=== PATIENT | female | born 1955 | race Caucasian/White ===

== ENCOUNTER → 2020-02-06 10:42 | Outpatient (CLI) | payer BC, SELFPAY ==
--- NOTE | 2020-02-06 10:52 | BD_ITS ---
STUDY: DUAL ENERGY X-RAY ABSORPTIOMETRY / DXA REASON FOR EXAM: Female, 64 years old. [employer] -- TAKES VITAMIN D -- DOES HIGH AMOUNT OF EXERCISE -- HX OF RIGHT LEG FX -- ROSALINA OF 0.75 INCH TECHNIQUE: Bone Mineral Density (BMD) measurements of lumbar spine and bilateral hips were obtained. COMPARISON: None. FINDINGS: Lumbar Spine (L1-L4): g/cm2 (0.942) / T-score (-2.0) / Z-score (-0.6) Findings are suggestive of osteopenia with a moderate fracture risk. Left Femur Total: g/cm2 (0.869) / T-score (-1.1) / Z-score (-0.1) Left Femoral Neck: g/cm2 (0.973) / T-score (-0.5) / Z-score (0.9) Right Femur Total: g/cm2 (0.891) / T-score (-0.9) / Z-score (0.1) Right Femoral Neck: g/cm2 (0.959) / T-score (-0.6) / Z-score (0.8) BD/Dexa Bone Density Study IMPRESSION: The patient is considered osteopenic as outlined below according to World [employer] Organization (WHO) criteria with a moderate fracture risk. Reference Information: The T-score is the number of standard deviations above or below the standard which is normal for young adults at their peak bone mineral density. The World Health Organization (WHO) interprets the T-scores as follows: Above -1 Normal bone density Between -1 and -2.5 Osteopenia Equal to / or below -2.5 Osteoporosis As a practical clinical guideline, osteopenia may be graded as follows: Mild -1 through -1.5 Moderate -1.6 through -2.0 Severe -2.1 through -2.4 The Z-score is the number of standard deviations above or below age-matched controls. A Z-score of less than -1.5 would be considered abnormal. References: 1. NIH Osteoporosis and Related Bone Diseases http://www.osteo.org 2. International Society for Clinical Densitometry http://www.iscd.org 3. National Osteoporosis Foundation http://www.nof.org Electronically Signed: Sohail Macario, at 15:06 EDT , Service support ,
== END ==
PROVIDERS: PCP Nurse Practitioner; Referring Provider Nurse Practitioner; Visit Provider Nurse Practitioner
DX: Z78.0 Asymptomatic menopausal state (principal)
CPT/HCPCS: 77080

== ENCOUNTER → 2020-02-19 09:10 | Outpatient (CLI) | payer BC, SELFPAY ==
--- NOTE | 2020-02-19 09:13 | RAD_ITS ---
HISTORY: right foot pain Technique: Right foot AP, lateral, and oblique radiographs Comparison: None available Findings: No acute fracture is perceived. The patient has a lateral fixation plate and screw width in the distal fibula across a healed fracture. Osseous mineralization, joint spaces, otherwise appear preserved as imaged. There is flexion deformity at the interphalangeal joints, and minimal extension at the metatarsophalangeal joints. No focal abnormality or radiopaque foreign body is seen in the surrounding soft tissues. RAD/Foot min 3 Views IMPRESSION: No acute osseous abnormality identified in the foot. at 0422 Reported and signed by: Rangel Ruano MD Electronically Signed: Rangel Ruano MD at 4:21 EDT Tel , Service support ,
== END ==
PROVIDERS: PCP Nurse Practitioner; Referring Provider Nurse Practitioner; Visit Provider Nurse Practitioner
DX: M79.673 Pain in unspecified foot (principal)
CPT/HCPCS: 73630

== ENCOUNTER → 2020-03-24 17:16 | Outpatient (CLI) | payer BC, SELFPAY ==
[2020-03-24 09:44] VITALS: BMI 22.8
[2020-03-28 06:17] LABS: HPV APTIMA, High Risk Negative (Negative)
== END ==
PROVIDERS: PCP Nurse Practitioner; Visit Provider Obstetrics & Gynecology
DX: Z12.4 Encounter for screening for malignant neoplasm of cervix (principal)
CPT/HCPCS: 87624; 88175; G0145

== ENCOUNTER → 2020-04-01 11:19 | Outpatient (CLI) | payer BC, SELFPAY ==
[2020-03-24 09:44] VITALS: BMI 22.8
--- NOTE | 2020-04-01 11:20 | US_ITS ---
STUDY: ULTRASOUND OF THE FEMALE PELVIS - COMPLETE REASON FOR EXAM: Female, 64 years old. adnexal mass, hx cysts per patient LMP: TECHNIQUE: Transabdominal and Transvaginal TECHNICAL QUALITY: Adequate. COMPARISON: None. FINDINGS: The uterus is anteverted and is in a midline position. The uterus measures 7.5 x 4.7 x 3.6 cm. There is a Nabothian cyst of the cervix. The endometrium measures 5 mm in thickness, and is hyperechoic. There is no demonstrated endometrial mass. There is a 3.9 cm pedunculated fibroid on the right side of the uterus. Additional 1.5 cm calcified fibroid. I.U.D. - The patient does not have an I.U.D. Neither ovary is visualized. There is no fluid in the cul-de-sac. The pre void volume of the bladder was 557 ml. US/Transvaginal Non- IMPRESSION: A pedunculated 3.9 cm fibroid of the right side of the uterus. Neither ovary is seen. Electronically Signed: Demar Olmedo MD at 21:06 EST , Service support ,
--- NOTE | 2020-04-01 11:20 | US_ITS ---
STUDY: ULTRASOUND OF THE FEMALE PELVIS - COMPLETE REASON FOR EXAM: Female, 64 years old. adnexal mass, hx cysts per patient LMP: TECHNIQUE: Transabdominal and Transvaginal TECHNICAL QUALITY: Adequate. COMPARISON: None. FINDINGS: The uterus is anteverted and is in a midline position. The uterus measures 7.5 x 4.7 x 3.6 cm. There is a Nabothian cyst of the cervix. The endometrium measures 5 mm in thickness, and is hyperechoic. There is no demonstrated endometrial mass. There is a 3.9 cm pedunculated fibroid on the right side of the uterus. Additional 1.5 cm calcified fibroid. I.U.D. - The patient does not have an I.U.D. Neither ovary is visualized. There is no fluid in the cul-de-sac. The pre void volume of the bladder was 557 ml. US/Pelvic (Non ) IMPRESSION: A pedunculated 3.9 cm fibroid of the right side of the uterus. Neither ovary is seen. Electronically Signed: Demar Olmedo MD at 21:06 EST , Service support ,
== END ==
PROVIDERS: PCP Nurse Practitioner; Referring Provider Obstetrics & Gynecology; Visit Provider Obstetrics & Gynecology
DX: N94.89 Other specified conditions associated with female genital organs and menstrual cycle (principal)
CPT/HCPCS: 76830; 76856

== ENCOUNTER → 2020-08-28 10:07 | Outpatient (CLI) | payer BC, SELFPAY ==
[2020-03-24 09:44] VITALS: BMI 22.8
--- NOTE | 2020-08-28 10:09 | VDLE_ITS ---
Reason For Study: [place] RIGHT LEFT GSV is normal. CFV is compressible, spontaneous, phasic, CFV is compressible, spontaneous, phasic, competent, and demonstrates normal competent and demonstrates normal augmentation. augmentation. FV is compressible, spontaneous, phasic, competent and demonstrates normal augmentation. POP V is compressible, spontaneous, phasic, competent and demonstrates normal augmentation. T/P Trunk is compressible. PTV is compressible. RT PerV is compressible. Procedure This is a venous duplex using B-mode, color flow and spectral Doppler. Exam performed in department. A preliminary report was called and/or faxed to Cinthya Mathis. VL/Venous Duplex US, Unilateral Interpretation Summary Deep veins of the right lower extremity are patent and compressible segmentally . There is no evidence of right lower extremity deep vein thrombosis. Valvular competence maria ears intact within the proximal deep venous system on the right . The right great saphenous vein a ppears patent and compressible segmentally. Ordering Physician: Cinthya Mathis Referring Physician: Cinthya Mathis Performed By: Sindhu Salgado, RDCS, RVT
== END ==
PROVIDERS: PCP Nurse Practitioner; Referring Provider Nurse Practitioner; Visit Provider Nurse Practitioner
DX: M79.604 Pain in right leg (principal)
CPT/HCPCS: 93971

== ENCOUNTER → 2020-09-30 12:22 | Outpatient (CLI) | payer BC, SELFPAY ==
[2020-03-24 09:44] VITALS: BMI 22.8
--- NOTE | 2020-09-30 12:24 | BI_ITS ---
MAMMOGRAPHY - BILATERAL SCREENING REASON FOR EXAM: Female, 64 years old. Routine annual screening examination. PERTINENT HISTORY: Non-contributory. TECHNIQUE: Digital bilateral breast dee (3D mammographic acquisition) in the CC and MLO projections. 2-D mediolateral oblique (MLO) and craniocaudad (CC) views of both breasts were obtained. CAD: Full Field Digital Mammography with Computer Added Detection was performed. COMPARISON: Comparison is made with prior outside examination dated 07/31/2019. FINDINGS: Breast Composition: There are scattered areas of fibroglandular density. There are no dominant masses or suspicious calcifications. No other significant abnormalities are identified. There has been no significant change since the prior study. BI/SCRN MAMM (CAD)W/DEE BILAT IMPRESSION: Stable bilateral screening mammogram. Yearly follow-up mammogram recommended. (A) ASSESSMENT CATEGORY: BIRADS Category 1: Negative. A letter regarding these results will be sent to the patient by the facility within 30 days. Approximately 10% of breast cancers are not detected by mammography. A normal mammogram should not delay biopsy of a clinically suspicious abnormality. [id number] Electronically Signed: Sohail Macario MD at 8:16 EDT , Service support ,
== END ==
PROVIDERS: PCP Nurse Practitioner; Referring Provider Nurse Practitioner; Visit Provider Nurse Practitioner
DX: Z12.31 Encounter for screening mammogram for malignant neoplasm of breast (principal)
CPT/HCPCS: 77063; 77067

== ENCOUNTER 2021-08-27 12:15 | Outpatient (CLI) | payer BC, SELFPAY ==
--- NOTE | 2021-08-27 12:18 | US_ITS ---
STUDY: ULTRASOUND OF THE FEMALE PELVIS - COMPLETE REASON FOR EXAM: Female, 65 years old. Pain LMP: Unknown. TECHNIQUE: Transabdominal and Transvaginal TECHNICAL QUALITY: Adequate. COMPARISON: None. FINDINGS: The uterus is anteverted and is in a midline position. The uterus measures 7.5 x 5.0 x 2.9 cm. Normal uterine cervix. The endometrium measures 2 mm in thickness, and is hyperechoic. There is no demonstrated endometrial mass. Female side of her nose 2 separate fibroids larger measures 4.7 cm. I.U.D. - The patient does not have an I.U.D. The right ovary is visualized. The right ovary measures 2.0 x 1.5 x 0.8 cm. There is no right ovarian cyst or ovarian mass. There is no visualized right adnexal mass or complex lesion. There is normal arterial and normal venous vascularity. The left ovary is visualized. The left ovary measures 1.7 x 1.6 x 1.2 cm. There is no left ovarian cyst or ovarian mass. There is no visualized left adnexal mass or complex lesion. There is normal arterial and normal venous vascularity. There is no fluid in the cul-de-sac. The bladder is sonographically US/Pelvic (Non ) IMPRESSION: Enlarged fibroid uterus, larger of the 2 fibroids measures 4.7 cm No suspicious adnexal mass or free fluid Sonographically normal endometrial thickness for age Electronically Signed: Chadd Atkins MD at 16:56 EDT ,
--- NOTE | 2021-08-27 12:18 | US_ITS ---
STUDY: ULTRASOUND OF THE FEMALE PELVIS - COMPLETE REASON FOR EXAM: Female, 65 years old. Pain LMP: Unknown. TECHNIQUE: Transabdominal and Transvaginal TECHNICAL QUALITY: Adequate. COMPARISON: None. FINDINGS: The uterus is anteverted and is in a midline position. The uterus measures 7.5 x 5.0 x 2.9 cm. Normal uterine cervix. The endometrium measures 2 mm in thickness, and is hyperechoic. There is no demonstrated endometrial mass. Female side of her nose 2 separate fibroids larger measures 4.7 cm. I.U.D. - The patient does not have an I.U.D. The right ovary is visualized. The right ovary measures 2.0 x 1.5 x 0.8 cm. There is no right ovarian cyst or ovarian mass. There is no visualized right adnexal mass or complex lesion. There is normal arterial and normal venous vascularity. The left ovary is visualized. The left ovary measures 1.7 x 1.6 x 1.2 cm. There is no left ovarian cyst or ovarian mass. There is no visualized left adnexal mass or complex lesion. There is normal arterial and normal venous vascularity. There is no fluid in the cul-de-sac. The bladder is sonographically US/Transvaginal Non- IMPRESSION: Enlarged fibroid uterus, larger of the 2 fibroids measures 4.7 cm No suspicious adnexal mass or free fluid Sonographically normal endometrial thickness for age Electronically Signed: Chadd Atkins MD at 16:56 EDT ,
== END 2021-08-27 23:59 | disposition home or self-care (01) ==
LOC: OPUS 12:16
PROVIDERS: PCP Nurse Practitioner; Visit Provider Nurse Practitioner Women's Health
DX: R10.2 Pelvic and perineal pain (principal)
CPT/HCPCS: 76830; 76856

== ENCOUNTER → 2021-10-01 | Outpatient (CLI) | payer BC, SELFPAY ==
--- NOTE | 2021-10-01 08:23 | BI_ITS ---
MAMMOGRAPHY - BILATERAL SCREENING REASON FOR EXAM: Female, 65 years old. Routine annual screening examination. PERTINENT HISTORY: Non-contributory. TECHNIQUE: Digital bilateral breast dee (3D mammographic acquisition) in the CC and MLO projections. 2-D mediolateral oblique (MLO) and craniocaudad (CC) views of both breasts were obtained. CAD: Full Field Digital Mammography with Computer Added Detection was performed. COMPARISON: Comparison is made with prior study dated 09/30/2020. FINDINGS: Breast Composition: There are scattered areas of fibroglandular density. There are no dominant masses or suspicious calcifications. No other significant abnormalities are identified. There has been no significant change since the prior study. BI/SCRN MAMM (CAD)W/DEE BILAT IMPRESSION: Stable bilateral screening mammogram. Yearly follow-up mammogram recommended. (A) ASSESSMENT CATEGORY: BIRADS Category 1: Negative. A letter regarding these results will be sent to the patient by the facility within 30 days. Approximately 10% of breast cancers are not detected by mammography. A normal mammogram should not delay biopsy of a clinically suspicious abnormality. [id number] Electronically Signed: Sohail Macario MD at 9:36 EDT ,
== END | disposition home or self-care (01) ==
LOC: OPBI 08:22
PROVIDERS: PCP Nurse Practitioner; Visit Provider Nurse Practitioner Women's Health
DX: Z12.31 Encounter for screening mammogram for malignant neoplasm of breast (principal)
CPT/HCPCS: 77063; 77067

== ENCOUNTER 2021-10-06 05:14 | Day surgery (SDC) | payer BC, SELFPAY ==
--- NOTE | 2021-10-01 08:46 | EKG12_ITS ---
Test Reason : PRE-OP Blood Pressure : / mmHG Vent. Rate : 060 BPM Atrial Rate : 060 BPM P-R Int : 126 ms QRS Dur : 096 ms QT Int : 432 ms P-R-T Axes : 067 046 051 degrees QTc Int : 432 ms Normal sinus rhythm Normal ECG Confirmed by ROSI URIBE, MARILUZ ([id number]), associate editor JAVI JASON ([id number]) on 10/02/2021 9:44:31 AM Referred By: GABE Confirmed By:JOSE ARMANDO ARANDA MD
[2021-10-01 09:41] LABS: Hematocrit 42.6 % (37-47); Hemoglobin 14.4 g/dL (12.0-15.0); Mean Corp Hgb Conc 33.8 g/dL (32-36); Mean Corpuscular Hgb 31.3 pg (27.0-32.0); Mean Corpuscular Volume 92.6 fL (81-99); Mean Platelet Vol. 9.9 fl (6.2-12.0); Platelet Count 183 K/mm3 (150-450); White Blood Count 2.8 K/mm3 (4.4-11.0)
[2021-10-01 10:05] LABS: Magnesium 2.1 mg/dL (1.6-2.6)
--- NOTE | 2021-10-04 07:54 | PCM.HP.BLA ---
History and Physical Date of Admission: 10/06/21 MR#:[id number]: JULIANA NORRIS #:[id number]:[id number] Provider:Dr. 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 Is patient in pain?: No Allergies No Known Allergies Allergy (Verified 09/16/21 13:23) Medications ascorbate calcium (vitamin C) 500 mg tablet 500 mg PO DAILY 03/24/20 [History Confirmed 09/16/21] biotin 1 mg capsule 1 mg PO DAILY 03/24/20 [History Confirmed 09/16/21] calcium carbonate 600 mg-vitamin D3 12.5 mcg (500 unit) capsule cap PO 03/24/20 [History Confirmed 09/16/21] cholecalciferol (vitamin D3) 50 mcg (2,000 unit) capsule 50 mcg PO DAILY 03/24/20 [History Confirmed 09/16/21] multivitamin 1 tab PO DAILY 03/24/20 [History Confirmed 09/16/21] cranberry 400 mg capsule 400 mg PO DAILY 02/05/21 [History Confirmed 09/16/21] lactobacillus combination no.4 3 billion cell capsule 3,000 mmu cells PO DAILY 02/05/21 [History Confirmed 09/16/21] Post menopausal: No Patient : No : No PFSH Medical History Abnormal Pap smear of cervix Right leg injury Surgical History H/O dilation and curettage s/p leg surgery Family History Mother Non-Hodgkin's lymphoma in adult Sister Hypertension Diabetes Father Kidney disease Social History Smoking Status: Never smoker alcohol intake: current details: occasionally substance use type: does not use caffeine: Yes what type of physical activity do you participate in: walking, running, aerobics and weight training frequency: 5-6 times per week seatbelt use: always do you feel safe at home: Yes additional social history: - Andrew Patient and both retired [employer] US follow up/possible surgical consult Details: JULIANA NORRIS is a 65 year old who presents for surgical consultation sent to me by Mitzi Sinclair CNP. The consultation is in regards to fibroid uterus that is causing worsening pelvic pain. The patient states that throughout her life her doctors have monitored a masslike structure in her uterus and have has been told that this is not a indication for surgery and has been monitored over several years and several different doctors. In the past however the fibroids were not causing her significant pain or abnormal bleeding. However she is now experiencing abdominal discomfort on the left and right sides of her pelvis more on her left side ultrasound shows a 7 cm uterus with 2 large fibroids at the fundus measuring approximately 5 cm each she is no longer interested in watching the fibroids and monitoring them over time she is recommending surgical excision of the entire uterus ovaries and fibroids. She is not experiencing any post menopausal bleeding and her endometrial lining is 2 mm in thickness. Her last Pap smear was in 2020 and was normal. She does have a history of abnormal Pap smears in the long past. Pregancy History 4 Elective abortions Hx Para 3 Spontaneous abortions 1 Hx # Term Pregnancies Ectopic pregnancies Hx # Pregnancies Multiple births # of living children Past Pregnancies Del. Date Name GA/Weeks Outcome Route Bth Weight Gen Labor Lgth Anesthesia Del Locatn Provider FOB Unknown Joshua Unknown Jeremias Unknown Will ROS Const ROS Unobtainable: All systems reviewed & are unremarkable except as noted in H Resp Resp: Reports system reviewed and no additional complaints, except as documented; Denies cough GI GI: Reports as per HPI Psych Psych: Reports system reviewed and no additional complaints, except as documented Exam Const General: cooperative, healthy appearing, comfortable and no acute distress Resp Effort & Inspection: normal respiratory effort Skin General: no rashes or lesions noted Psych Appearance: grossly normal Speech and Movement: speech and movement normal Coding Level of Care Code Off vis,est,level 4 Diagnoses Pelvic pain R10.2 Fibroid uterus D25.9 Assessment and Plan Assessment and Plan (1) Pelvic pain: Status: Acute Comment: US (2) Fibroid uterus: Status: Acute Plan - Dr. Susan Reed DO: After discussing the patient's diagnosis and treatment plan options, patient wishes to proceed with surgical management. I have discussed with the patient the risks, benefits, and alternatives of the procedure which include but are not limited to risks of anesthesia, bleeding, infection, possible damage to bowel, bladder, or surrounding vasculature which could lead to additional surgery to evaluate any complications. Patient agrees to procedure and wishes to proceed. ACOG/uptodate references given for additional information regarding procedure After long discussion on the risks benefits and alternatives to surgery the decision was made to proceed with a total robotic hysterectomy bilateral salpingo-oophorectomy and cystoscopy. UPDATE- I have seen the patient and performed any clinically relevant updates to the history and physical exam. Susan Reed DO
[2021-10-06] VITALS (8 sets, daily range): BP systolic 107–137; BP diastolic 69–97; PULSE 55–73; RESP 16; TEMP 36.1–36.6; O2SAT 94–100
[2021-10-06] MEDS: Lactated Ringers 1,000 ML 40 ML IV (06:29)
[2021-10-06] MEDS: Gabapentin 600 MG Tablet PO (06:30)
[2021-10-06] MEDS: Acetaminophen 500 MG Tablet 1000 MG PO (06:30)
[2021-10-06] MEDS: Celecoxib 200 MG Capsule 400 MG PO (06:30)
[2021-10-06 06:35] LABS: Bedside Glucose 81 mg/dL (74-106)
[2021-10-06] MEDS: dexAMETHasone 10 MG/ML Vial 8 MG IV (06:35)
--- NOTE | 2021-10-06 07:30 | HYST_PTH ---
PATIENT: [place]ULIANA NORRIS [place] [facility] [id number] AGE/SX: 65/F ROOM: RE10/06/[address]: Dr. Susan Reed DO : 1955 BED: DIS: 10/06/2021 SPEC #: [id number] RECD: 10/06/21 10:49 STATUS: MIHAELA DOUGLAS #: [id number] LOU: 10/06/21 07:[address]: Susan Reed DEPT: SURGICAL PATHOLOGY RECD BY: Shelly Khan ENTERED: 10/06/21 12:08 SP TYPE: HYSTERECT OTHR DR: Cinthya Mathis, STORAGE [employer]IONS ARCHITECT-C Tissues: Uterus, NOS Procedures: Surgery Specimen Level V HEADER OPERATION: ERAS, lap robotic hysterectomy, BSO, cystoscopy PRE-OP DIAGNOSIS: Pelvic pain, fibroid uterus TISSUE SUBMITTED: Uterus, cervix, bilateral fallopian tubes and ovaries MICROSCOPIC DIAGNOSIS Uterus, cervix, bilateral fallopian tubes and ovaries, hysterectomy and bilateral salpingo-oophorectomy: Cervix ? chronic cystic cervicitis. Endometrium ? inactive endometrium with focal fatty metaplasia. See comment. - Benign endometrial polyp with inactive endometrium and cystic changes. Myometrium ? subserosal leiomyomas (4.5 cm in greatest dimension). Bilateral fallopian tubes - no pathologic diagnosis. Bilateral ovaries ? mesothelial inclusion cysts. Right paratubal cyst. SJ:tad 10/07/2021 COMMENT The plaque-like area in the endometrium shows fatty metaplasia. MICROSCOPIC DESCRIPTION Slides are reviewed. GROSS DESCRIPTION Received in fixative is one container labeled with the patient's name and designated uterus, cervix, bilateral fallopian tubes and ovaries. The specimen consists of a hysterectomy specimen consisting of uterus with cervix, attached bilateral fallopian tubes and ovaries. The uterus with cervix weighs 106 gm and measures 10.5 x 6 x 4 cm. A large subserosal nodule is noted. The serosal surface is trotter, glistening. The ectocervical mucosa is unremarkable. The external os is oval and patulous in contour. The endocervical canal measures 3.5 cm in length and the endocervical mucosa is unremarkable. The triangular endometrial cavity measures 4 cm in length and up to 2.5 cm in width. The endometrial cavity shows a sessile raised polypoid area measuring 1 x 0.5 cm. Two trotter-white plaque-like areas are also noted. The rest of the endometrium measures 0.1 cm in thickness. Sections of uterine wall reveal a subserosal nodular mass measuring 4.5 x 3 x 3 cm. Sections of this mass reveals trotter whorled cut surfaces without areas of hemorrhage, necrosis or cystic degeneration. The uninvolved uterine wall measures up to 1.5 cm in thickness. The right fallopian tube measures 6.5 cm in length and 0.5 cm in diameter. The fimbrial end is identified. A paratubal cyst is also noted measuring 0.5 cm in greatest dimension. No tubo-ovarian adhesions are noted. Sections reveal unremarkable cut surfaces. The right ovary measures 2.5 x 1 x 1 cm. Sections reveal a few cysts filled with clear fluid. The largest cyst measures 0.6 cm in greatest dimension. The left fallopian tube is similar appearance to right and measures 6.5 cm in length and 0.5 cm in diameter. The left ovary measures 2.5 x 1 x 1.5 cm. Sections reveal unremarkable cut surfaces. Food Service Representative sections are submitted in ten cassettes as follows: 1??anterior cervix, 2 - posterior cervix, 3 & 4 - anterior uterine wall (4 contains sessile polyp), 5 & 6 - posterior uterine wall (6 contains the white plaque-like area in the endometrium), 7 & 8 - subserosal nodular mass, 9 - right fallopian tube, paratubal cyst and right ovary, 10 - left fallopian tube and left ovary. / BERTRAM:tad 10/06/2021 TC:1 CPT: 17961
--- NOTE | 2021-10-06 07:36 | PCM.DC ---
Discharge Instructions Diet Discharge Diet: No restrictions Activity May resume sexual activity in: 6 weeks Weight Bearing Status: Full weight bearing Dressing / Incision Call your doctor if your incision/area has: Continuous Slow Oozing, Sudden Increased Bleeding, Increased Pain/ Swelling, Increased Redness and Foul Smelling Discharge Call your doctor if you observe: Fever of 101 or Higher, Using more than 1 pad per hour, Shortness of breath, Chest pain and Uncontrolled pain Suture Line Care: Avoid Pulling/Pushing and Avoid Pinching/Bending Remove Dressing in: 1 week (if present) Cleanse incision/area with: Soap & Water and Keep Dressing Clean & Dry Follow Up Care Please Follow Up With: Susan Reed DO When: Call to make an appointment with your doctor for a postop visit in 2 and 6 weeks Test Results: Test results from this visit will be discussed in further detail at your follow-up appointment, if applicable. Discharge Plan Admission Primary Reason for Your Visit: hysteectomy Attending Provider: Susan Reed Primary Care Provider: Cinthya Mathis NP Discharge Orders/Prescriptions Prescriptions: New ibuprofen 800 mg tablet 800 mg PO Q8H PRN (Reason: pain) 7 Days Qty: 30 RF: 0 oxycodone-acetaminophen [Percocet] 5-325 mg tablet 1 tab PO Q6H PRN (Reason: pain) 7 Days Qty: 30 RF: 0 Continued multivitamin Tablet 1 tab PO DAILY RF: 0 biotin 1 mg capsule 5,000 mg PO DAILY RF: 0 ascorbate calcium (vitamin C) 500 mg tablet 500 mg PO DAILY RF: 0 cholecalciferol (vitamin D3) 50 mcg (2,000 unit) capsule 50 mcg PO DAILY RF: 0 calcium carbonate-vitamin D3 [Calcium 600 with Vitamin D3] 600 mg(1,500mg) -500 unit capsule 1 cap PO DAILY RF: 0 cranberry 400 mg capsule 4,200 mg PO DAILY RF: 0 Probiotic 3 billion cell capsule 3,000 mmu cells PO DAILY RF: 0 cyanocobalamin (vitamin B-12) 25 mcg Tablet 50 mcg PO DAILY RF: 0 Referrals / Follow Up: Cinthya Mathis NP, VEGETABLE VENDOR-C [Primary Care Provider] - Disposition Disposition (needs filled in before D/C Order can be placed): Home, Self Care
[2021-10-06] MEDS: Cefazolin 2 GM in 0.9% Normal Saline 100 ML IV (07:44)
--- NOTE | 2021-10-06 08:45 | OP.PCM_ITS ---
Report of Operation Date of Procedure: 10/06/21 Pre-Operative Diagnosis: fibroid uterus, pelvic pain Post-Operative Diagnosis: fibroid uterus, pelvic pain Surgery/Procedure Performed:: total robotic hysterectomy, bilateral salpingo- oophorectomy Description of Surgical Findings:: large right fundal fibroid, normal uterus, tubes, ovaries, + ureteral jets on cystoscopy Surgeon: Susan Reed telephone appointment clerk: Yajaira Connolly Type of Anesthesia: General Estimated Blood Loss (mL): 30cc Fluids Replaced: 1 liter Description of Procedure: Implanted material: None Complications: None Findings: 8 size uterus, normal appearing ovaries and tubes and an approximate 6-7 cm fundal right fibroid. On exploration of the abdominal cavity the uterus, adnexa, bowel, and liver were found to be normal. Cystoscopy showed no evidence of leaking at approximately 250 cc of normal saline, positive ureteral orifices and jet flow are seen and no suture material was appreciated in the bladder. Specimens removed: Uterus and cervix, Bilateral tubes and ovaries Reason for surgery: This is a 65-year-old who presented to my officewith history of pelvic pain and persistent fibroid uterus. She has tried conservative therapy her entire life and states that she is tired of the pain. The planned procedure is for a robotic hysterectomy the risks benefits and alternatives were discussed with the patient the patient had a clear understanding of the procedure and a consent form was signed. Procedure: The patient was placed in the dorsal low lithotomy position and prepped and draped in the normal sterile fashion both abdominally and in the perineum. Her legs were placed in stirrups a Kincaid catheter was inserted into the urethra without difficulty. A weighted speculum was placed in the vagina and a single- tooth tenaculum was used to grasp the anterior lip of the cervix. An advincula uterine manipulator was inserted through the cervix without complication. It was then tied into place at the 2 and 10:00 locations on the cervix. Gloves were changed and attention was turned towards the abdomen. Approximately 23 cm above the pubic symphysis in the midline, and after Marcaine injection, a 8 mm incision was made. An 8 mm trocar was inserted through the laparoscope, then inserted into the abdomen under direct visualization using the laparoscope. Good abdominal placement was noted and no complications were appreciated. An air seal device was utilized to create pneumoperitoneum. At 12 cm lateral to the midline on the left and right sides 8 mm accessory ports were placed. Next a left upper quadrant 8 mm economist research assistant port site was placed. The patient was placed in steep Trendelenburg position. The robot was docked. The hysterectomy was initiated first by taking down the round ligament on each side using the vessel sealer device. The peritoneum between the round ligament and the IP ligament was opened using electrocautery and extended the length of the IP ligament. The IP ligament was then taken down using the vessel sealer device. These areas were freed without complication the broad ligament was then and taken down using the vessel sealer device. Next the bladder flap was taken down without complication. This was done using monopolar cautery to the level of the cervical vaginal junction. After the bladder flap was created, uterine vessels were then isolated and cauterized using the vessel sealer device and EndoShears. At this point the uterine vessels were taken down further starting from the ascending branch, dissecting along the edges of the cervix to the level of the cervical vaginal junction with hemostasis appreciated. The cervical vaginal junction was then using monopolar cautery in a circumferential pattern across the superior aspect of the cervix. The specimen was delivered through the vagina and sent to pathology. The remaining vaginal cuff was then closed using V lock suture in 2 layers . This was performed in a running technique. Excellent hemostasis was obtained and good closure was noted. Irrigation was then performed. All operative sites were noted to be hemostatic. A cystoscopy was performed with a 70 degree cystoscope through the urethra into the bladder without complication. The bladder was instilled with approximately 250 cc of normal saline. Intraoperative images were made. Ureteral orifices and jets were identified. No suture material was appreciated in the bladder. The bladder was then drained and cystoscope was removed. The abdominal cavity was again examined using the laparoscope after the robot was undocked. All operative sites were noted to be hemostatic. The trochars were removed under direct visualization without complication and pneumoperitoneum was reduced. At this point the skin was then closed using 4-0 Monocryl subcuticular stitch and sealed with surgical glue. The patient tolerated the procedure well sponge lap and needle counts were correct x2 the patient was taken to the recovery room in stable condition. Complications none Admit VTE Documentation VTE Present on Admission: Yes VTE Mechan Device Prophylaxis: SCD's VTE Pharm Prophylaxis ordered?: No Reason prophylaxis not ordered:: Treatment Not Indicated Multi Select Codes Urinary/Genital Urinary/Genital CPT Codes: 97572 TLH+BS/O <250gr uterus
--- NOTE | 2021-10-06 09:25 | SUR.PHASEI ---
PT DENIES PAIN, STATES IT JUST FEELS LIKE I HAVE TO PEE. PT ATTEMPTED ON BEDPAN, NO VOID.
[2021-10-06] MEDS: Ibuprofen 400 MG Tablet 800 MG PO (10:19)
== END 2021-10-06 12:44 | disposition home or self-care (01) ==
LOC: SDC 05:15 → AC 05:15
PROVIDERS: Anesthesiology; PCP Nurse Practitioner; Referring Provider Obstetrics & Gynecology; Visit Provider Obstetrics & Gynecology
PROC: 0UT94ZZ Resection of Uterus, Percutaneous Endoscopic Approach (ICD-10-PCS; CPT 58571; principal; 2021-10-06 07:10)
DX: N84.0 Polyp of corpus uteri (principal); N83.292 Other ovarian cyst, left side; N83.8 Other noninflammatory disorders of ovary, fallopian tube and broad ligament; N72 Inflammatory disease of cervix uteri; D25.2 Subserosal leiomyoma of uterus; N83.291 Other ovarian cyst, right side; Z86.16 Personal history of COVID-19
CPT/HCPCS: 58571; 00840; 36415; 82962; 83735; 85027; 86850; 86900; 86901; 88307; 93005; J7120; A4216; J2405; J3475

== ENCOUNTER → 2021-10-13 | Outpatient (CLI) | payer BC, SELFPAY ==
--- NOTE | 2021-10-13 11:57 | CT_ITS ---
STUDY: CT ABDOMEN AND PELVIS WITH CONTRAST REASON FOR EXAM: Female, 65 years old. Right flank pain -- status post robotic hysterectomy last week RADIATION DOSAGE (If Supplied By Facility): CTDIvol = ( 7.67 ) mGy, DLP = ( 568.78 ) mGycm TECHNIQUE: Transaxial images were obtained from the dome of the diaphragm to the symphysis pubis without oral contrast. IV 100mL Isovue-300 was administered. Sagittal and coronal images were reconstructed. Individualized dose optimization techniques were used for this CT. COMPARISON: None. FINDINGS: The visualized lung bases are unremarkable. The visualized portions of the heart are within normal limits. Normal liver. Normal gallbladder and extrahepatic biliary system. Normal spleen. Normal pancreas. Normal bilateral adrenal glands. Normal right kidney. Normal left kidney. Normal visualized stomach. Normal small intestine. There are multiple colonic diverticula consistent with diverticulosis. The appendix is visualized and appears normal. Normal abdominal aorta. Normal inferior vena cava. Normal retroperitoneum. Normal urinary bladder. There is absence of the uterus consistent with a prior hysterectomy. Tiny amount of free fluid is seen in cul-de-sac. Normal abdominal wall. Normal osseous structures. CT/Abdomen/Pelvis W IV Cont ONLY IMPRESSION: The patient is status post hysterectomy. Tiny amount of free fluid is seen in the cul-de-sac. Sigmoid diverticulosis. Electronically Signed: Sohail Macario MD at 12:43 EDT ,
[2021-10-13 12:10] LABS: CREATININE FINGERSTICK < 0.9 mg/dL (0.55-1.02); EGFR FINGERSTICK > 60.0000 mL/min (>60)
== END | disposition home or self-care (01) ==
LOC: CT 11:55
PROVIDERS: PCP Nurse Practitioner; Referring Provider Obstetrics & Gynecology; Visit Provider Obstetrics & Gynecology
DX: R10.9 Unspecified abdominal pain (principal)
CPT/HCPCS: 74177; Q9967

== ENCOUNTER → 2022-10-05 | Outpatient (CLI) | payer BC, SELFPAY ==
--- NOTE | 2022-10-05 09:30 | BI_ITS ---
MAMMOGRAPHY - BILATERAL SCREENING REASON FOR EXAM: Female, 66 years old. Routine annual screening examination. PERTINENT HISTORY: Non-contributory. TECHNIQUE: Digital bilateral breast dee (3D mammographic acquisition) in the CC and MLO projections. 2-D mediolateral oblique (MLO) and craniocaudad (CC) views of both breasts were obtained. CAD: Full Field Digital Mammography with Computer Added Detection was performed. COMPARISON: Comparison is made with prior study of October 01, 2021 and September 30, 2020. FINDINGS: Breast Composition: There are scattered areas of fibroglandular density. There are no dominant masses or suspicious calcifications. No other significant abnormalities are identified. There has been no significant change since the prior study. BI/SCRN MAMM (CAD)W/DEE BILAT IMPRESSION: Stable bilateral screening mammogram. Yearly follow-up mammogram recommended. (A) ASSESSMENT CATEGORY: BIRADS Category 1: Negative. A letter regarding these results will be sent to the patient by the facility within 30 days. Approximately 10% of breast cancers are not detected by mammography. A normal mammogram should not delay biopsy of a clinically suspicious abnormality. [id number] Electronically Signed: Sohail Macario MD at 10:23 EDT ,
--- NOTE | 2022-10-05 09:36 | BD_ITS ---
STUDY: DUAL ENERGY X-RAY ABSORPTIOMETRY / DXA REASON FOR EXAM: Female, 66 years old. [id number] TECHNIQUE: Bone Mineral Density (BMD) measurements of lumbar spine and bilateral hips were obtained. COMPARISON: Comparison is made with prior study dated February 06, 2020. FINDINGS: Lumbar Spine (L1-L4): g/cm2 (0.751) / T-score (-2.7) / Z-score (-1.0) Findings are suggestive of osteoporosis with a high fracture risk. Left Femur Total: g/cm2 (0.771) / T-score (-1.4) / Z-score (-0.2) Left Femoral Neck: g/cm2 (0.773) / T-score (-0.7) / Z-score (0.8) Right Femur Total: g/cm2 (0.743) / T-score (-1.6) / Z-score (-0.4) Right Femoral Neck: g/cm2 (0.757) / T-score (-0.8) / Z-score (0.7) The T-Scores on the most recent prior examination were: Lumbar Spine (L1-L4): There has been worsening of bone density since the previous examination. Left Femur Total: which represents a worsening of 4.5%. Right Femur Total: which represents a worsening of 10.3%. BD/Dexa Bone Density Study IMPRESSION: The patient is considered osteoporotic as outlined below according to [employer] Organization (WHO) criteria with a high fracture risk. There has been worsening of bone density since the previous examination. Reference Information: The T-score is the number of standard deviations above or below the standard which is normal for young adults at their peak bone mineral density. The World Health Organization (WHO) interprets the T-scores as follows: Above -1 Normal bone density Between -1 and -2.5 Osteopenia Equal to / or below -2.5 Osteoporosis As a practical clinical guideline, osteopenia may be graded as follows: Mild -1 through -1.5 Moderate -1.6 through -2.0 Severe -2.1 through -2.4 The Z-score is the number of standard deviations above or below age-matched controls. A Z-score of less than -1.5 would be considered abnormal. References: 1. NIH Osteoporosis and Related Bone Diseases www osteo.org 2. International Society for Clinical Densitometry www iscd.org 3. National Osteoporosis Foundation www nof.org Electronically Signed: Sohail Macario MD at 15:04 EDT ,
== END | disposition home or self-care (01) ==
LOC: OPBD 09:28
PROVIDERS: PCP Nurse Practitioner Family; Referring Provider Nurse Practitioner Family; Visit Provider Nurse Practitioner Family
DX: Z78.0 Asymptomatic menopausal state (principal); Z12.31 Encounter for screening mammogram for malignant neoplasm of breast
CPT/HCPCS: 77063; 77067; 77080

== ENCOUNTER 2023-08-16 19:14 | Emergency (ER) | payer MEDICARE, BC, SELFPAY ==
[2023-08-16 19:15] VITALS: BP 119/68; PULSE 67; RESP 16; TEMP 36.4; O2SAT 99; BMI 21.9
--- NOTE | 2023-08-16 19:43 | RAD_ITS ---
STUDY: X-RAY - LEFT HAND REASON FOR EXAM: Female, 67 years old. LEFT THUMB PAIN TECHNIQUE: 3 view(s) of the hand. COMPARISON: None. FINDINGS: Normal radiocarpal articulation. Normal distal radioulnar joint. Normal visualized carpal bones. Normal carpal articulations Mild degenerative changes of the carpometacarpal articulation of the thumb. Normal second through fifth carpometacarpal joints. Normal metacarpi. Normal metacarpophalangeal joint of the thumb. Normal interphalangeal joint of the thumb. Normal proximal and distal phalanges of the thumb. Normal metacarpophalangeal joints of the second through fifth fingers. Normal proximal and distal interphalangeal joints of the second through fifth fingers. Normal phalanges of the second through fifth fingers. The soft tissue structures are unremarkable. RAD/Hand Min 3 Views IMPRESSION: Degenerative changes of the base of the thumb. No acute fracture or dislocation Electronically Signed: Leroy Shepard MD at 20:14 EDT ,
== END 2023-08-16 21:16 | disposition left against medical advice (07) ==
LOC: ED 21:26
PROVIDERS: PCP Nurse Practitioner Family
DX: Z53.21 Procedure and treatment not carried out due to patient leaving prior to being seen by health care provider (principal)
CPT/HCPCS: 73130

== ENCOUNTER → 2023-08-18 | Outpatient (CLI) | payer MEDICARE, BC, SELFPAY ==
--- NOTE | 2023-08-18 14:40 | CT_ITS ---
STUDY: CT BRAIN WITH AND WITHOUT CONTRAST REASON FOR EXAM: Female, 67 years old. Headaches RADIATION DOSAGE (If Supplied By Facility): CTDIvol = ( 44.99 ) mGy, DLP = ( 1547.23 ) mGycm TECHNIQUE: Transaxial CT imaging of the brain was performed pre and post contrast administration. The examination was performed with intravenous administration of IV 50mL Isovue-300. Individualized dose optimization techniques were used for this CT. COMPARISON: None. FINDINGS: Normal soft tissue structures. Normal calvarium. Normal size ventricles and extra-axial spaces for the patient''s age. Normal white matter tracts of the cerebral hemispheres. Normal basal ganglia and thalami. Normal brainstem. Normal cerebellum. There is no intracranial hemorrhage. There are no findings of an acute ischemic infarction. Normal visualized paranasal sinuses. CT/Brain/Head W/WO Contrast IMPRESSION: Normal unenhanced and enhanced CT scan of the brain. Electronically Signed: Sohail Macario MD at 15:16 EDT ,
[2023-08-18 15:11] LABS: CREATININE FINGERSTICK < 1.0 mg/dL (0.55-1.02); EGFR FINGERSTICK > 60.0000 mL/min (>60)
== END | disposition home or self-care (01) ==
LOC: CT 14:39
PROVIDERS: PCP Nurse Practitioner Family; Referring Provider Nurse Practitioner Family; Visit Provider Nurse Practitioner Family
DX: R51.9 Headache, unspecified (principal)
CPT/HCPCS: 70470; Q9967

== ENCOUNTER → 2023-09-30 | Outpatient (CLI) | payer MEDICARE, BC, SELFPAY ==
--- NOTE | 2023-09-30 12:51 | RAD_ITS ---
INDICATION: left jaw pain EXAMINATION/TECHNIQUE: X-RAY - XR Facial Bones Min 3 Views COMPARISON: No relevant prior comparison study available FINDINGS: SOFT TISSUES: No soft tissue swelling or gas. No radiopaque foreign body. BONES: No displaced fracture or subluxation. No sclerotic or destructive changes observed. SINUSES: No acute abnormality. RAD/Facial Bones min 3 Views IMPRESSION: Negative facial bone series. If symptoms persist, consider CT scan facial bones. Electronically Signed: Scooby Palma MD at 13:18 EDT ,
== END | disposition home or self-care (01) ==
PROVIDERS: PCP Nurse Practitioner Family; Referring Provider Nurse Practitioner Family; Visit Provider Nurse Practitioner Family
DX: M87.180 Osteonecrosis due to drugs, jaw (principal)
CPT/HCPCS: 70150

== ENCOUNTER → 2023-10-07 | Outpatient (CLI) | payer MEDICARE, BC, SELFPAY ==
--- NOTE | 2023-10-07 09:16 | BI_ITS ---
MAMMOGRAPHY - BILATERAL SCREENING REASON FOR EXAM: Female, 67 years old. Routine annual screening examination. PERTINENT HISTORY: Non-contributory. TECHNIQUE: Digital bilateral breast dee (3D mammographic acquisition) in the CC and MLO projections. 2-D mediolateral oblique (MLO) and craniocaudad (CC) views of both breasts were obtained. CAD: Full Field Digital Mammography with Computer Added Detection was performed. COMPARISON: Comparison is made with prior study dated October 05, 2022 and October 01, 2021. FINDINGS: Breast Composition: There are scattered areas of fibroglandular density. There are no dominant masses or suspicious calcifications. No other significant abnormalities are identified. There has been no significant change since the prior study. BI/SCRN MAMM (CAD)W/DEE BILAT IMPRESSION: Stable bilateral screening mammogram. Yearly follow-up mammogram recommended. (A) ASSESSMENT CATEGORY: BIRADS Category 1: Negative. A letter regarding these results will be sent to the patient by the facility within 30 days. Approximately 10% of breast cancers are not detected by mammography. A normal mammogram should not delay biopsy of a clinically suspicious abnormality. [id number] Electronically Signed: Sohail Macario MD at 9:56 EDT ,
== END | disposition home or self-care (01) ==
LOC: OPBI 09:14
PROVIDERS: PCP Nurse Practitioner Family; Referring Provider Obstetrics & Gynecology; Visit Provider Obstetrics & Gynecology
DX: Z12.31 Encounter for screening mammogram for malignant neoplasm of breast (principal)
CPT/HCPCS: 77063; 77067